=== PATIENT | male | born 1950 | race Caucasian/White ===

== ENCOUNTER 2017-06-04 11:54 | Day surgery (SDC) | payer BC, MEDICARE ==
[2017-06-04] MEDS ORDERED: MIDAZOLAM HCL 2MG/2ML VIAL IV ONE (14:34)
[2017-06-04] MEDS ORDERED: FENTANYL PF 100MCG/2ML VIAL IV ONE (14:34)
[2017-06-04] MEDS ORDERED: LIDOCAINE 2% MDV (20MG/ML) 20ML VIAL IV ONE (14:34)
[2017-06-04] MEDS ORDERED: PROPOFOL 10 MG/ML VIAL IV ONE (14:34)
--- NOTE | 2017-06-10 11:54 | Operative Note ---
DATE OF SURGERY: 06/04/2017 SURGEON: Javier Lincoln MD OPERATION: 1. ESOPHAGOGASTRODUODENOSCOPY. 2. COLONOSCOPY. INDICATIONS: This is a 66-year-old male with a history of esophagitis and colon polyps who presented for both esophagogastroduodenoscopy and colonoscopy. POSTOPERATIVE DIAGNOSES: 1. Mild distal esophagitis. 2. Normal stomach and duodenum. 3. An 8 mm sessile polyp in the ascending colon that was removed by snare cautery. 4. Otherwise normal colon. ANESTHESIA: Sedation is per Anesthesia. Pulse oximetry was monitored throughout the procedures to maintain O2 saturation of 90% or greater. Supplemental oxygen was administered via nasal cannula. Cardiac and vital signs were monitored throughout the duration of the procedures, and they were stable. The procedures of esophagogastroduodenoscopy and colonoscopy, risks and benefits of the procedures including the risk of bleeding and perforation, among others, were explained to the patient who voiced understanding and agreed to have the procedures done. Physical examination was performed, and the patient was found stable for sedation. PROCEDURE: The patient was placed in the left lateral position. Sedation was initiated. A plastic bite block was inserted into the oral cavity. The Olympus [id number] gastroscope was introduced into the oral cavity and advanced to the proximal esophagus without difficulty. The esophageal mucosa was carefully examined upon introduction of the gastroscope. The proximal, mid, and distal esophageal mucosa appeared normal except for mild Z line irregularity and a was noted. The gastroscope was then advanced into the stomach, and surveillance of the stomach revealed a normal gastric mucosa. The gastroscope was then advanced to the descending duodenum without difficulty. The duodenal bulb and descending duodenum appeared normal. The gastroscope was then withdrawn into the stomach and retroflexion was performed. There were no other lesions noted. The gastroscope was then straightened and withdrawn while carefully examining the gastric and esophageal mucosa. No other lesions noted. Multiple distal esophageal biopsies were obtained. She remained with stable vital signs and was repositioned for colonoscopy. A digital rectal exam was performed and showed some mild external hemorrhoids with no palpable rectal masses. An Olympus PCF-180AL colonoscope was then inserted into the rectum under direct visualization. It was advanced to the cecum without difficulty. The ileocecal valve and appendiceal orifice were identified and photographed. The colonic mucosa was carefully examined upon introduction of the colonoscope. There was an 8 mm sessile polyp noted in the distal ascending colon that was removed by snare cautery. There were no other lesions noted. The colonoscope was then withdrawn while carefully examining the colonic mucosal surfaces. No other lesions were noted. In the rectum, retroflexion was performed and grade 1 internal hemorrhoids were noted. The colonoscope was then withdrawn and the procedures were terminated. The patient tolerated the procedure well without any immediate complications. He remained with stable vital signs and was transferred to the recovery room. RECOMMENDATIONS: 1. We will follow up on the histology of the polyp. 2. He is to avoid any aspirin or aspirin-like medication for 2 weeks and also to stay on a low-residue diet for 2 weeks and thereafter be on a high-fiber diet. 3. The patient is to have a repeat colonoscopy in 3 or 5 years depending on the histology of the polyp. Thank you for allowing me to participate in the care of your patient. CC: Dr. Diamond Javier Lincoln MD Date/Time [facility]
== END 2017-06-04 17:24 | disposition home or self-care (01) ==
LOC: HOP 11:54
PROVIDERS: ATTEND Internal Medicine Gastroenterology
DX: Z12.11 Encounter for screening for malignant neoplasm of colon (principal); Z86.010 Personal history of colon polyps; D12.2 Benign neoplasm of ascending colon; K20.8 Other esophagitis; E78.00 Pure hypercholesterolemia, unspecified
CPT/HCPCS: 45385; 43239; 00810; J3010